=== PATIENT | male | born 1940 | race Caucasian/White ===

== ENCOUNTER 2018-05-14 15:11 | Emergency (ER) | payer OTHER ==
[~2018-05-14] VITALS: Ht 182.9 cm; Wt 98.0 kg
[~2018-05-14 15:11] MED LIST: APIX5TAB PO; ASPI-496 PO; ASPI-614 PO; DIPH25CA61 PO; ENOX80SY5 SQ; GLUC1CAP18 PO; KRIL1CAP PO; METO-93 PO; METO25TA35 PO; MULT1CAP19 PO; OMEP20TA62 PO; PSYL0.5215 PO; SIMV80TA3 PO; VITA400C14 PO
[2018-05-14 15:49] LABS: MICROSCOPIC NOT IND
[2018-05-14 16:00] LABS: CULTURE INDICATED? NO
[2018-05-14 16:00] LABS: BASOPHILS # (AUTO) 0.04 x10^3/uL (0-0.1); BASOPHILS % (AUTO) 0 % (0-1); EOSINOPHILS # (AUTO) 0.06 x10^3/uL (0-0.4); EOSINOPHILS % (AUTO) 1 % (1-7); LYMPHOCYTES # (AUTO) 1.07 x10^3/uL (1-3.4); LYMPHOCYTES % (AUTO) 9 % (22-44); MD NO; MEAN CORPUSCULAR HEMOGLOBIN 33.2 pg (27.5-34.5); MEAN CORPUSCULAR HGB CONC 34.2 g/dL (33.2-36.2); MEAN CORPUSCULAR VOLUME 97.3 fL (81-97); MEAN PLATELET VOLUME 8.5 fL (7.4-10.4); MONOCYTES # (AUTO) 0.64 x10^3/uL (0.2-0.8); MONOCYTES % (AUTO) 5 % (2-9); NEUTROPHILS # (AUTO) 10.13 x10^3/uL (1.8-6.8); NEUTROPHILS % (AUTO) 85 % (42-75); PLATELET COUNT 270 x10^3/uL (130-400); RED BLOOD COUNT 4.98 x10^6/uL (4.38-5.82); RED CELL DISTRIBUTION WIDTH 12.6 % (9.4-14.8)
[2018-05-14 16:06] LABS: ALBUMIN 3.7 g/dL (3.4-5.0); ANION GAP 9 mmol/L (5-15); CALCIUM 8.6 mg/dL (8.5-10.1); CHLORIDE 109 mmol/L (98-107)
[2018-05-14 16:10] LABS: ALANINE AMINOTRANSFERASE 40 U/L (12-78); ALKALINE PHOSPHATASE 67 U/L (45-117); BILIRUBIN,TOTAL 1.4 mg/dL (0.2-1.0)
[2018-05-14] MEDS ORDERED: BISM262T9 PO (16:14)
[2018-05-14] MEDS ORDERED: BUDE10.22 INH (16:14)
[2018-05-14] MEDS ORDERED: SODIUM CHLORIDE FLUSH 10ML SYR IVF ONE (16:30)
[2018-05-14 16:39] VITALS: BP 123/84
[2018-05-14] MEDS ORDERED: OMNIPAQUE 350 MG/ML, 100ML BOTTLE ONE (16:53)
== END 2018-05-14 17:35 | disposition home or self-care (01) ==
LOC: ED 17:28
DX: A09 Infectious gastroenteritis and colitis, unspecified (principal)
CPT/HCPCS: 36415; 74177; 80053; 81003; 83690; 85025; 93005; 99285; Q9967

== ENCOUNTER → 2018-07-05 | Outpatient (CLI) | payer OTHER ==
[~2018-07-05] MED LIST changes: +ACET-76 PO; +BISM262T9 PO; +BUDE10.22 INH; +FURO-92 PO; +GLUC500T11 PO; +LACT1CAP35 PO; +MELA10TA PO; +MULT-751 PO; +PANT20TA3 PO; +POTA20TA37 PO; -SIMV80TA3 PO; +SIMV80TA7 PO; +VITA400C43 PO
[2018-07-05 13:58] LABS: BASOPHILS # (AUTO) 0.03 x10^3/uL (0-0.1); BASOPHILS % (AUTO) 1 % (0-1); EOSINOPHILS # (AUTO) 0.13 x10^3/uL (0-0.4); EOSINOPHILS % (AUTO) 2 % (1-7); LYMPHOCYTES # (AUTO) 1.24 x10^3/uL (1-3.4); LYMPHOCYTES % (AUTO) 18 % (22-44); MD NO; MEAN CORPUSCULAR HGB CONC 34.1 g/dL (33.2-36.2); MEAN CORPUSCULAR VOLUME 96.8 fL (81-97); MEAN PLATELET VOLUME 7.8 fL (7.4-10.4); MONOCYTES # (AUTO) 0.59 x10^3/uL (0.2-0.8); MONOCYTES % (AUTO) 8 % (2-9); NEUTROPHILS # (AUTO) 5.09 x10^3/uL (1.8-6.8); NEUTROPHILS % (AUTO) 72 % (42-75); PLATELET COUNT 253 x10^3/uL (130-400); RED BLOOD COUNT 4.57 x10^6/uL (4.38-5.82); RED CELL DISTRIBUTION WIDTH 13.4 % (9.4-14.8)
[2018-07-05 14:11] LABS: ALANINE AMINOTRANSFERASE 46 U/L (12-78); ALBUMIN 3.6 g/dL (3.4-5.0); ANION GAP 7 mmol/L (5-15); CALCIUM 8.2 mg/dL (8.5-10.1); CHLORIDE 110 mmol/L (98-107)
[2018-07-05 14:14] LABS: ALKALINE PHOSPHATASE 66 U/L (45-117); BILIRUBIN,TOTAL 1.1 mg/dL (0.2-1.0); TOTAL PROTEIN 6.8 g/dL (6.4-8.2)
== END | disposition home or self-care (01) ==
LOC: STAR 13:10
PROVIDERS: ATTEND Internal Medicine Cardiovascular Disease
DX: Z01.818 Encounter for other preprocedural examination (principal); I48.2 Chronic atrial fibrillation; Z85.828 Personal history of other malignant neoplasm of skin
CPT/HCPCS: 36415; 80053; 85025

== ENCOUNTER 2018-07-09 06:16 | Day surgery (SDC) | payer OTHER ==
[2018-07-05 13:38] VITALS: BP 158/77
[~2018-07-09] VITALS: Ht 182.9 cm; Wt 92.7 kg
[~2018-07-09 06:16] MED LIST changes: -ACET-76 PO; -GLUC500T11 PO; -LACT1CAP35 PO; -MULT-751 PO; -VITA400C43 PO
[2018-07-09] MEDS ORDERED: SODIUM CHLORIDE 0.9% 1,000 ML IV SCH ×2 (06:32→07:00)
[2018-07-09] MEDS ORDERED: VITA400C43 PO (06:47)
[2018-07-09] MEDS ORDERED: LACT1CAP35 PO (06:47)
[2018-07-09] MEDS ORDERED: ACET-76 PO (06:47)
[2018-07-09] MEDS ORDERED: MULT-751 PO (06:47)
[2018-07-09] MEDS ORDERED: GLUC500T11 PO (06:47)
[2018-07-09] MEDS ORDERED: FENTANYL PF 250 MCG/5ML ONE (07:52)
[2018-07-09] MEDS ORDERED: PROPOFOL 10 MG/ML, 20ML ONE ×2 (07:52→08:04)
[2018-07-09] MEDS ORDERED: MIDAZOLAM 1 MG/ML, 2ML ONE (07:52)
[2018-07-09] MEDS ORDERED: LIDOCAINE GEL 2%, 5ML ONE (07:53)
[2018-07-09] MEDS ORDERED: DEXAMETHASONE 4 MG/ML, 1ML ONE (08:04)
[2018-07-09] MEDS ORDERED: ROCURONIUM 10 MG/ML,10ML ONE (08:04)
[2018-07-09] MEDS ORDERED: SUCCINYLCHOLINE 20 MG/ML, 10ML ONE (08:04)
[2018-07-09] MEDS ORDERED: LIDOCAINE 1%, 50ML ONE (08:33)
[2018-07-09] MEDS: FENTANYL PF 100 MCG/2ML IV PRN ×2 (09:52→10:11)
[2018-07-09] MEDS: LABETALOL 5MG/ML, 20ML IV PRN ×2 (09:53→10:52)
[2018-07-09] MEDS ORDERED: LABETALOL 5MG/ML, 20ML ONE (09:55)
[2018-07-09] MEDS ORDERED: FENTANYL PF 100 MCG/2ML ONE (09:55)
[2018-07-09] MEDS ORDERED: FUROSEMIDE 40 MG PO PRN (10:00)
[2018-07-09] MEDS ORDERED: LORazepam 2 MG/ML, 1ML IVPush PRN (10:00)
[2018-07-09] MEDS ORDERED: PROMETHAZINE 12.5 MG SUPP PR PRN (10:00)
[2018-07-09] MEDS ORDERED: ACETAMINOPHEN 325 MG TABLET PO PRN ×2 (10:00)
[2018-07-09] MEDS ORDERED: PROMETHAZINE 25 MG/ML, 1ML IV PRN (10:00)
[2018-07-09] MEDS ORDERED: TEMPLATE NON-FORMULARY MED. (Psyllium Husk** (Metamucil**) 0.52 GM) PO SCH (10:00)
[2018-07-09] MEDS ORDERED: OXYcodone 5 MG/5 ML ORAL.SOL UDC PO PRN (10:00)
[2018-07-09] MEDS ORDERED: ACETAMINOPHEN 500 MG TABLET PO PRN (10:00)
[2018-07-09] MEDS ORDERED: ONDANSETRON 2MG/ML, 2ML IV PRN (10:00)
[2018-07-09] MEDS ORDERED: ALBUTEROL SULFATE 2.5 MG/3 ML NPPB PRN (10:00)
[2018-07-09] MEDS ORDERED: HYDROmorphone 1 MG/ML, 1ML IV PRN (10:00)
[2018-07-09] MEDS ORDERED: ONDANSETRON ODT 8 MG PO PRN (10:00)
[2018-07-09] MEDS ORDERED: MIDAZOLAM 1 MG/ML, 2ML IV PRN (10:00)
[2018-07-09] MEDS ORDERED: MORPHINE SULFATE 4 MG/ML, 1ML IVPush PRN (10:00)
[2018-07-09] MEDS ORDERED: hydrALAzine 20 MG/ML, 1ML IV PRN (10:00)
[2018-07-09] MEDS ORDERED: MEPERIDINE/PF 25MG/0.5ML IVPush PRN (10:00)
[2018-07-09] MEDS ORDERED: APIXABAN 5 MG TABLET ONE (10:53)
[2018-07-09] MEDS ORDERED: MELATONIN 10 MG PO SCH (21:00)
[2018-07-09] MEDS ORDERED: METOPROLOL TARTRATE 25 MG TABLET PO SCH (21:00)
[2018-07-09] MEDS ORDERED: APIXABAN 5 MG TABLET PO SCH (21:00)
[2018-07-09] MEDS ORDERED: DIPHENHYDRAMINE 25 MG CAPSULE PO SCH (21:00)
[2018-07-09] MEDS ORDERED: SIMVASTATIN 80 MG PO SCH (21:00)
[2018-07-10] MEDS ORDERED: TEMPLATE NON-FORMULARY MED. (Glucosamine Hcl** 1,000 MG) PO SCH (09:00)
[2018-07-10] MEDS ORDERED: PANTOPRAZOLE SODIUM 20 MG PO SCH (09:00)
[2018-07-10] MEDS ORDERED: VITAMIN E ACETATE 400 UNIT PO SCH (09:00)
[2018-07-10] MEDS ORDERED: TEMPLATE NON-FORMULARY MED. (Lactobacillus Acidophilus** (Probiotic**) 1 TAB) PO SCH (09:00)
[2018-07-10] MEDS ORDERED: TEMPLATE NON-FORMULARY MED. (Budesonide/Formoterol Fumarate (Symbicort 80-4.5 Mcg Inhaler) INH SCH (09:00)
== END 2018-07-09 14:50 | disposition home or self-care (01) ==
LOC: CACL 06:16
PROVIDERS: ATTEND Internal Medicine Cardiovascular Disease
DX: I48.92 Unspecified atrial flutter (principal); I25.10 Atherosclerotic heart disease of native coronary artery without angina pectoris; J44.9 Chronic obstructive pulmonary disease, unspecified; E78.5 Hyperlipidemia, unspecified; Z79.899 Other long term (current) drug therapy; Z85.828 Personal history of other malignant neoplasm of skin; Z98.890 Other specified postprocedural states
CPT/HCPCS: 71046; 93312; 93321; 93325; 93613; 93621; 93653; C1730; C1731; C1732; C1894; J0330; J1100; J2250; J2704; J3010; J3490

== ENCOUNTER 2018-10-01 10:24 | Inpatient (IN) | payer OTHER ==
[~2018-10-01] VITALS: Ht 182.9 cm; Wt 80.1 kg
[~2018-10-01 10:24] MED LIST changes: -GADOBUTROL 10 MMOL/10 ML PFS ONE; -LISI-167 PO; -LISI5TAB7 PO
[2018-10-01] MEDS ORDERED: LISI5TAB7 PO (11:10)
[2018-10-01] MEDS: ALBUTEROL SULFATE 2.5 MG/3 ML HHN SCH ×2 (11:35→23:34)
[2018-10-01 11:42] LABS: BASOPHILS # (AUTO) 0.03 x10^3/uL (0-0.1); BASOPHILS % (AUTO) 1 % (0-1); EOSINOPHILS # (AUTO) 0.09 x10^3/uL (0-0.4); EOSINOPHILS % (AUTO) 2 % (1-7); LYMPHOCYTES # (AUTO) 1.33 x10^3/uL (1-3.4); LYMPHOCYTES % (AUTO) 24 % (22-44); MD NO; MEAN CORPUSCULAR HEMOGLOBIN 33.8 pg (27.5-34.5); MEAN CORPUSCULAR VOLUME 99.5 fL (81-97); MEAN PLATELET VOLUME 7.7 fL (7.4-10.4); MONOCYTES # (AUTO) 0.51 x10^3/uL (0.2-0.8); MONOCYTES % (AUTO) 9 % (2-9); NEUTROPHILS # (AUTO) 3.55 x10^3/uL (1.8-6.8); NEUTROPHILS % (AUTO) 64 % (42-75); PLATELET COUNT 274 x10^3/uL (130-400); RED BLOOD COUNT 4.32 x10^6/uL (4.38-5.82); RED CELL DISTRIBUTION WIDTH 12.6 % (9.4-14.8)
[2018-10-01 11:52] LABS: INTERNATIONAL NORMALIZED RATIO 1.04 (0.93-1.1)
[2018-10-01 11:54] LABS: ALANINE AMINOTRANSFERASE 35 U/L (12-78); ALBUMIN 3.2 g/dL (3.4-5.0); ANION GAP 6 mmol/L (5-15); CALCIUM 8.7 mg/dL (8.5-10.1); CHLORIDE 113 mmol/L (98-107); CREATININE 0.93 mg/dL (0.7-1.3)
[2018-10-01 11:56] LABS: ALKALINE PHOSPHATASE 68 U/L (45-117); BILIRUBIN,TOTAL 0.6 mg/dL (0.2-1.0); TOTAL PROTEIN 6.4 g/dL (6.4-8.2)
[2018-10-01] MEDS ORDERED: SODIUM CHLORIDE FLUSH 10ML SYR IVF ONE (13:00)
[2018-10-01] MEDS: SODIUM CHLORIDE 0.9% 1,000 ML IV SCH ×2 (13:34→23:50)
[2018-10-01] MEDS ORDERED: BISACODYL 10 MG SUPP PR PRN (14:00)
[2018-10-01] MEDS ORDERED: LORazepam 2 MG/ML, 1ML IVPush PRN (14:00)
[2018-10-01] MEDS ORDERED: LABETALOL 5MG/ML, 20ML IVPush PRN (14:00)
[2018-10-01] MEDS ORDERED: POLYETHYLENE GLYCOL 17 GM PACKET PO PRN (14:00)
[2018-10-01] MEDS ORDERED: ONDANSETRON 2MG/ML, 2ML IVPush PRN (14:00)
[2018-10-01] MEDS ORDERED: ONDANSETRON ODT 4 MG PO PRN (14:00)
[2018-10-01] MEDS: BUDESONIDE 0.5 MG/2 ML INHA HHN SCH ×2 (14:30→23:35)
[2018-10-01 16:21] VITALS: BP 145/86
[2018-10-01] MEDS: METOPROLOL TARTRATE 25 MG TABLET PO SCH (21:01)
[2018-10-01] MEDS: SIMVASTATIN 40 MG TABLET PO SCH (21:02)
[2018-10-02 04:16] LABS: BASOPHILS # (AUTO) 0.04 x10^3/uL (0-0.1); BASOPHILS % (AUTO) 1 % (0-1); EOSINOPHILS # (AUTO) 0.12 x10^3/uL (0-0.4); EOSINOPHILS % (AUTO) 2 % (1-7); LYMPHOCYTES # (AUTO) 1.99 x10^3/uL (1-3.4); LYMPHOCYTES % (AUTO) 25 % (22-44); MD NO; MEAN CORPUSCULAR HEMOGLOBIN 33.8 pg (27.5-34.5); MEAN CORPUSCULAR HGB CONC 33.9 g/dL (33.2-36.2); MEAN CORPUSCULAR VOLUME 99.6 fL (81-97); MEAN PLATELET VOLUME 7.5 fL (7.4-10.4); MONOCYTES # (AUTO) 0.55 x10^3/uL (0.2-0.8); MONOCYTES % (AUTO) 7 % (2-9); NEUTROPHILS # (AUTO) 5.14 x10^3/uL (1.8-6.8); NEUTROPHILS % (AUTO) 66 % (42-75); PLATELET COUNT 264 x10^3/uL (130-400); RED BLOOD COUNT 4.15 x10^6/uL (4.38-5.82); RED CELL DISTRIBUTION WIDTH 12.6 % (9.4-14.8)
[2018-10-02 04:26] LABS: ALANINE AMINOTRANSFERASE 29 U/L (12-78); ANION GAP 8 mmol/L (5-15); CALCIUM 7.7 mg/dL (8.5-10.1); CHLORIDE 112 mmol/L (98-107)
[2018-10-02 04:28] LABS: ALKALINE PHOSPHATASE 67 U/L (45-117); BILIRUBIN,TOTAL 0.8 mg/dL (0.2-1.0); TOTAL PROTEIN 5.9 g/dL (6.4-8.2)
[2018-10-02] MEDS: PANTOPRAZOLE 20MG TABLET PO SCH (06:05)
[2018-10-02] MEDS: BUDESONIDE 0.5 MG/2 ML INHA HHN SCH ×2 (07:34→21:13)
[2018-10-02] MEDS: ALBUTEROL SULFATE 2.5 MG/3 ML HHN SCH ×3 (07:34→21:13)
[2018-10-02] MEDS: SENNA/DOCUSATE TABLET PO SCH (09:25)
[2018-10-02] MEDS: METOPROLOL TARTRATE 25 MG TABLET PO SCH ×2 (09:26→20:34)
[2018-10-02] MEDS: SODIUM CHLORIDE 0.9% 1,000 ML IV SCH ×2 (09:59→20:49)
[2018-10-02] MEDS: LISINOPRIL 5 MG TABLET PO SCH (10:23)
[2018-10-02] MEDS: SIMVASTATIN 40 MG TABLET PO SCH (20:34)
[2018-10-02] MEDS: LABETALOL 5MG/ML, 20ML IVPush PRN (23:02)
[2018-10-03] MEDS: ALBUTEROL SULFATE 2.5 MG/3 ML HHN SCH ×4 (02:29→21:06)
[2018-10-03] MEDS: PANTOPRAZOLE 20MG TABLET PO SCH (06:10)
[2018-10-03] MEDS: SODIUM CHLORIDE 0.9% 1,000 ML IV SCH (06:13)
[2018-10-03] MEDS: METOPROLOL TARTRATE 25 MG TABLET PO SCH ×2 (08:38→21:32)
[2018-10-03] MEDS: LISINOPRIL 5 MG TABLET PO SCH (08:38)
[2018-10-03] MEDS: SENNA/DOCUSATE TABLET PO SCH (08:38)
[2018-10-03 09:17] VITALS: BP 154/56
[2018-10-03] MEDS: BUDESONIDE 0.5 MG/2 ML INHA HHN SCH ×2 (09:23→21:06)
[2018-10-03] MEDS: LABETALOL 5MG/ML, 20ML IVPush PRN (09:58)
[2018-10-03 12:41] VITALS: BP 157/69
[2018-10-03 14:48] VITALS: BP 156/70
[2018-10-03 20:00] VITALS: BP 181/67
[2018-10-03] MEDS: SIMVASTATIN 40 MG TABLET PO SCH (21:32)
[2018-10-03] MEDS: ACETAMINOPHEN 325 MG TABLET PO PRN (22:10)
[2018-10-03 22:30] VITALS: BP 147/67
[2018-10-04 00:10] LABS: CULTURE INDICATED? NO; MICROSCOPIC NOT IND
[2018-10-04 02:00] VITALS: BP 157/69
[2018-10-04] MEDS: ALBUTEROL SULFATE 2.5 MG/3 ML HHN SCH ×4 (02:30→19:31)
[2018-10-04] MEDS: PANTOPRAZOLE 20MG TABLET PO SCH (05:39)
[2018-10-04 06:52] VITALS: BP 163/66
[2018-10-04] MEDS: BUDESONIDE 0.5 MG/2 ML INHA HHN SCH ×2 (07:03→19:31)
[2018-10-04] MEDS: METOPROLOL TARTRATE 25 MG TABLET PO SCH ×2 (07:48→21:22)
[2018-10-04] MEDS: SENNA/DOCUSATE TABLET PO SCH (07:48)
[2018-10-04] MEDS: LISINOPRIL 5 MG TABLET PO SCH (07:48)
[2018-10-04] MEDS: ACETAMINOPHEN 325 MG TABLET PO PRN ×2 (10:28→21:21)
[2018-10-04 10:53] VITALS: BP 161/70
[2018-10-04] MEDS ORDERED: LISINOPRIL 10 MG TABLET PO ONE (12:00)
[2018-10-04 12:21] VITALS: BP 153/74
[2018-10-04 20:00] VITALS: BP 177/72
[2018-10-04] MEDS: SIMVASTATIN 40 MG TABLET PO SCH (21:22)
[2018-10-04 22:07] VITALS: BP 151/73
[2018-10-05 01:43] VITALS: BP 150/73
[2018-10-05] MEDS: ALBUTEROL SULFATE 2.5 MG/3 ML HHN SCH ×4 (02:18→19:32)
[2018-10-05] MEDS: PANTOPRAZOLE 20MG TABLET PO SCH (05:41)
[2018-10-05 06:40] VITALS: BP 137/72
[2018-10-05] MEDS ORDERED: LISINOPRIL 20 MG TABLET PO SCH (09:00)
[2018-10-05] MEDS: ACETAMINOPHEN 325 MG TABLET PO PRN ×3 (09:24→21:17)
[2018-10-05] MEDS: SENNA/DOCUSATE TABLET PO SCH (09:25)
[2018-10-05] MEDS: METOPROLOL TARTRATE 25 MG TABLET PO SCH ×2 (09:25→20:16)
[2018-10-05] MEDS: BUDESONIDE 0.5 MG/2 ML INHA HHN SCH ×2 (10:18→19:34)
[2018-10-05 14:15] VITALS: BP 148/73
[2018-10-05 20:00] VITALS: BP 174/79
[2018-10-05] MEDS: SIMVASTATIN 40 MG TABLET PO SCH (20:16)
[2018-10-06 02:00] VITALS: BP 146/82
[2018-10-06] MEDS: ALBUTEROL SULFATE 2.5 MG/3 ML HHN SCH ×2 (02:30→07:43)
[2018-10-06] MEDS: PANTOPRAZOLE 20MG TABLET PO SCH (05:42)
[2018-10-06] MEDS: ACETAMINOPHEN 325 MG TABLET PO PRN (06:29)
[2018-10-06 07:31] VITALS: BP 134/67
[2018-10-06] MEDS: BUDESONIDE 0.5 MG/2 ML INHA HHN SCH (07:43)
[2018-10-06] MEDS ORDERED: LISINOPRIL 10 MG TABLET PO SCH ×2 (09:00→21:00)
[2018-10-06 09:38] VITALS: BP 157/67
[2018-10-06] MEDS: SENNA/DOCUSATE TABLET PO SCH (09:40)
[2018-10-06] MEDS: METOPROLOL TARTRATE 25 MG TABLET PO SCH (09:40)
[2018-10-06] MEDS ORDERED: LISI-167 PO (10:46)
== END 2018-10-06 12:48 | disposition home or self-care (01) | DRG 65 ==
LOC: ED 11:55 → EDIP 13:10 → CCU 13:58 → 4WST 10-03 09:58
PROVIDERS: ADMIT Internal Medicine; ATTEND Internal Medicine
PROC: 5A09357 Assistance with Respiratory Ventilation, Less than 24 Consecutive Hours, Continuous Positive Airway Pressure (ICD-10-PCS; principal; 2018-10-01)
PROC: 5A09357 Assistance with Respiratory Ventilation, Less than 24 Consecutive Hours, Continuous Positive Airway Pressure (ICD-10-PCS; 2018-10-01)
PROC: 5A09357 Assistance with Respiratory Ventilation, Less than 24 Consecutive Hours, Continuous Positive Airway Pressure (ICD-10-PCS; 2018-10-01)
DX: I60.9 Nontraumatic subarachnoid hemorrhage, unspecified (principal); I48.92 Unspecified atrial flutter; I50.32 Chronic diastolic (congestive) heart failure; E78.5 Hyperlipidemia, unspecified; I62.03 Nontraumatic chronic subdural hemorrhage; I48.91 Unspecified atrial fibrillation; I70.0 Atherosclerosis of aorta; G47.33 Obstructive sleep apnea (adult) (pediatric); I11.0 Hypertensive heart disease with heart failure; I34.0 Nonrheumatic mitral (valve) insufficiency; I34.1 Nonrheumatic mitral (valve) prolapse; Z96.652 Presence of left artificial knee joint; J44.9 Chronic obstructive pulmonary disease, unspecified; K21.9 Gastro-esophageal reflux disease without esophagitis; R47.02 Dysphasia; Z79.01 Long term (current) use of anticoagulants; Z82.49 Family history of ischemic heart disease and other diseases of the circulatory system; Z83.3 Family history of diabetes mellitus; Z90.49 Acquired absence of other specified parts of digestive tract; Z90.89 Acquired absence of other organs; Z88.8 Allergy status to other drugs, medicaments and biological substances
CPT/HCPCS: 0399T; 36415; 70450; 80053; 81003; 85025; 85610; 85730; 87081; 93005; 93306; 94640; 99291; G0378; J7613; J7626; 92522-GN; J7030

== ENCOUNTER → 2018-10-01 | Outpatient (CLI) | payer OTHER ==
[~2018-10-01] MED LIST changes: +ACET-76 PO; +GADOBUTROL 10 MMOL/10 ML PFS ONE; +GLUC500T11 PO; +LACT1CAP35 PO; +LISI-167 PO; +LISI5TAB7 PO; +MULT-751 PO; +VITA400C43 PO
[2018-10-01 09:25] LABS: CREATININE 1.16 mg/dL (0.7-1.3)
== END | disposition home or self-care (01) ==
LOC: RAD 08:37
PROVIDERS: ATTEND Family Medicine
DX: I62.03 Nontraumatic chronic subdural hemorrhage (principal); I60.8 Other nontraumatic subarachnoid hemorrhage
CPT/HCPCS: 36415; 70544; 70553; 82565; A9585

== ENCOUNTER → 2018-12-07 | Outpatient (CLI) | payer MEDICARE, OTHER ==
[~2018-12-07] MED LIST changes: +LISI-167 PO; +LISI5TAB7 PO; +SIMV80TA18 PO; -SIMV80TA7 PO
== END | disposition home or self-care (01) ==
LOC: CFH 13:24
PROVIDERS: ATTEND Neurological Surgery
DX: I62.03 Nontraumatic chronic subdural hemorrhage (principal)
CPT/HCPCS: 70450